=== PATIENT | male | born 1950 | race Caucasian/White ===

== ENCOUNTER → 2021-05-19 14:42 | Outpatient (BNVA) | payer OTHER, SELFPAY | PROVIDERS: PCP Internal Medicine; Visit Provider Urology | DX: C67.9 Malignant neoplasm of bladder, unspecified (principal) | CPT/HCPCS: 52000; 99212 ==

== ENCOUNTER 2021-11-11 09:33 | Outpatient (REF) | payer OTHER, SELFPAY | END 2021-11-11 09:34 | disposition home or self-care (01) | LOC: HO.LAB 09:33 | PROVIDERS: PCP Internal Medicine; Visit Provider Urology | DX: C67.9 Malignant neoplasm of bladder, unspecified (principal) | CPT/HCPCS: 52000; 99212 ==

== ENCOUNTER 2022-11-11 08:40 | Outpatient (REF) | payer OTHER, SELFPAY ==
[2022-11-11 16:43] LABS: Urine Cytology See Pathology rpt
== END 2022-11-11 08:41 | disposition home or self-care (01) ==
LOC: HO.LAB 08:40
PROVIDERS: PCP Internal Medicine; Visit Provider Urology
DX: C67.9 Malignant neoplasm of bladder, unspecified (principal)
CPT/HCPCS: 52000; 88112; 99212

== ENCOUNTER 2023-03-25 12:53 | Outpatient (AMB) | payer OTHER, SELFPAY ==
--- NOTE | 2023-03-25 12:59 | A.OFFVIS_ITS ---
Intake Vital Signs 03/25/23 13:00 Height 6 ft Weight 132 lb 11.492 oz BMI 18.0 BP 138/83 Blood Pressure Location Lt brachial Position Sitting Pulse 99 Intake Visit Reasons: Colonoscopy Screening, / Dr. Underwood pt Intake Note: Patient presents to in office visit today as a new patient for disease of biliary tract. CC: Denies having any GI symptoms today. Allergies No Known Allergies [No Known Allergies*] Allergy (Verified 11/11/22 08:47) HPI HPI Comments History of Present Illness Details This is a 73y.o M with PMH of AAA, low grade bladder ca, COPD, who was last seen in our office in 2017 for screening colo (Dr Underwood - rpt in 10y) who is here for recent CTA with hepatobiliary abnormality. Pt currently reports no abd sx to include pain, N,V, change in appetite or stools. No unintentional weight loss. Drinks rarely. Smokes 0.5PPD. Sees [place] Nadege De Guzman [place] [facility] [place] of AAA. Had a CTA done recently that also showed densities associated with CBD with question of enalrged lymph nodes around it vs CBD stones. PFSH Medical History COPD (chronic obstructive pulmonary disease) History of peptic ulcer disease Pulmonary nodule Urinary bladder cancer Surgical History H/O colonoscopy History of surgery Social History Alcohol intake: current Alcohol intake frequency: holidays/special occasions only Patient Tobacco Use Status: Current everyday Tobacco user Cigarette Packs Per Day: 10 Years Smoked: 59 Review of Systems Const All systems reviewed & are unremarkable except as noted in HPI and below Physical Exam Vital Signs: Last Vital Signs Pulse 99 03/25/23 13:00 BP 138/83 03/25/23 13:00 BMI result Body Mass Index 18.0 Gen appear: NAD HEENT: nonicteric, no cervical lymphadenopathy Chest: CTA CVS: Regular S1/S2 Abd: soft, nontender, nondistended, bowel sounds + Ext: no peripheral edema Neuro: A/Ox3, noted to move all extremities spontaneously Psych: interacting appropriately Assessment & Plan Assessment & Plan (1) Dilated cbd, acquired: Code(s): K83.8 - Other specified diseases of biliary tract (2) Enlarged lymph nodes: Code(s): R59.9 - Enlarged lymph nodes, unspecified Plan Reviewed with the pt that CTA read is a bit perplexing as enlarged lymph nodes AROUND cbd appear very different from CBD stones INSIDES the common bile duct. In any case, will evaluate further with LFTs and liver protocol imaging. This has been ordered. Follow up in 6 weeks. Orders: Orders MR abdomen wo/w con Today K83.8 - Other specified diseases of biliary tract, R59.9 - Enlarged lymph nodes, unspecified Comprehensive Met. Panel Today K83.8 - Other specified diseases of biliary tract Complete Blood Count no Diff Today K83.8 - Other specified diseases of biliary tract Hepatitis B Surface Antibody Today Z11.59 - Encounter for screening for other viral diseases Hepatitis A IgG Today Z11.59 - Encounter for screening for other viral diseases Hepatitis B Core Antibody Today Z11.59 - Encounter for screening for other viral diseases Hepatitis B Surface Antigen Today Z11.59 - Encounter for screening for other viral diseases Hepatitis C Antibody Today Z11.59 - Encounter for screening for other viral diseases Coding Level of Care Code New Pt Level 4 (01419) Diagnoses Dilated cbd, acquired K83.8 Enlarged lymph nodes R59.9
[2023-03-25 13:00] VITALS: BP 138/83; PULSE 99; BMI 18.0
== END 2023-03-25 13:31 | disposition home or self-care (01) ==
PROVIDERS: PCP Internal Medicine; Visit Provider Internal Medicine
DX: K83.8 Other specified diseases of biliary tract (principal); R59.9 Enlarged lymph nodes, unspecified
CPT/HCPCS: 99204

== ENCOUNTER 2023-03-25 12:53 | Outpatient (REF) | payer OTHER, SELFPAY ==
[2023-03-25 14:51] LABS: Red Cell Distribution Width 13.8 % (11.0-16.0)
[2023-03-25 14:53] LABS: Hematocrit 49.9 % (42.0-52.0); Hemoglobin 16.5 g/dl (14.0-18.0); Mean Corpuscular HGB Conc 33.1 g/dl (31.0-36.0); Mean Corpuscular Hemoglobin 30.5 pg (27.0-33.0); Mean Corpuscular Volume 92.2 fL (80.0-98.0); PLT CLUMP 1; Red Blood Count 5.41 X10*6/uL (4.60-5.80)
[2023-03-25 14:55] LABS: PLT ABN DIST 1
[2023-03-25 15:38] LABS: Alanine Aminotransferase 25 U/L (0-40); Albumin Level 4.5 g/dL (3.5-5.0); Alkaline Phosphatase 89 U/L (39-117); Anion Gap 17 (12-20); Aspartate Amino Transferase 23 U/L (5-37); Bilirubin Total 0.3 mg/dL (0.0-1.0); Blood Urea Nitrogen 17 mg/dL (9-16); Calcium 10.3 mg/dL (8.4-10.2); Carbon Dioxide 21 mmol/L (22-29); Chloride 108 mmol/L (96-108); Estimated Glomerular Filt Rate > 60; Glucose Random 82 mg/dL (60-115); Potassium 4.6 mmol/L (3.3-5.1); Sodium 141 mmol/L (135-145); Total Protein 7.8 g/dL (6.5-8.0)
[2023-03-25 16:26] LABS: Platelet Count 158 X10*3/uL (160-400); White Blood Count 7.8 X10*3/uL (4.8-10.8)
[2023-03-26 04:12] LABS: Hepatitis A Antibody IgG Nonreactive (Nonreactive); ~Hepatitis A Antibody IgG 0.29 S/CO (0.00-0.99)
[2023-03-26 04:24] LABS: HBS Num1 0.13 mIU/mL (0-7.99); HBc Num1 0.07 S/CO (0.00-0.79); HBsAGNum1 0.36 S/CO (0.00-0.99); Hepatitis B Core Antibody Nonreactive (Nonreactive); Hepatitis B Surface Antigen Negative (Negative); ~HepC Num1 0.13 S/CO (0.00-0.79); ~Hepatitis B Surface Antibody NONREACTIVE (Nonreactive); ~Hepatitis C Antibody Nonreactive (Nonreactive)
== END 2023-03-25 12:54 | disposition home or self-care (01) ==
LOC: HO.LAB 12:53
PROVIDERS: PCP Internal Medicine; Visit Provider Internal Medicine
DX: Z11.59 Encounter for screening for other viral diseases (principal); K83.8 Other specified diseases of biliary tract; R59.9 Enlarged lymph nodes, unspecified; Z72.89 Other problems related to lifestyle
CPT/HCPCS: 36415; 80053; 85027; 86704; 86706; 86708; 86803; 87340; 99202

== ENCOUNTER 2023-05-11 09:54 | Outpatient (REF) | payer OTHER, SELFPAY ==
--- NOTE | ~2023-05-11 | MR_ITS ---
EXAMINATION: MR ABDOMEN WITHOUT AND WITH CONTRAST CLINICAL INFORMATION: Lymphadenopathy COMPARISON: None available. TECHNIQUE: MR abdomen was performed without and with use of 6 mL intravenous Gadavist . Postcontrast images are performed in multiphase dynamic sequences. Imaging was performed in 3 planes. FINDINGS: LUNG BASES: The visualized lung bases are unremarkable. LIVER, GALLBLADDER, AND BILIARY TREE: The liver is normal in size, smooth in contour, and normal in signal. No focal hepatic lesion or biliary ductal dilatation is present. The gallbladder is unremarkable with no evidence of gallbladder wall thickening, or obvious pericholecystic inflammatory changes. PANCREAS: Unremarkable. SPLEEN: Normal. ADRENAL GLANDS: Normal. KIDNEYS AND URETERS: The kidneys are normal in size, shape, and enhance symmetrically. No hydronephrosis. No perinephric stranding. GASTROINTESTINAL TRACT: No bowel obstruction. No ascites or fluid collection. ABDOMINAL WALL: No significant hernia is appreciated. LYMPH NODES: No lymphadenopathy. VASCULAR: Unremarkable. OSSEOUS STRUCTURES: Marrow signal normal. MR/MR abdomen wo/w con IMPRESSION: Unremarkable exam.
--- NOTE | ~2023-05-11 | XR_ITS ---
EXAMINATION: XR ORBITS, 3 VIEWS CLINICAL INFORMATION: Pre-MRI screening COMPARISON: None available. TECHNIQUE: 3 views of the orbits FINDINGS: No radiopaque densities identified in the region of the orbit. Visualized sinuses are unremarkable. Osseous structures are intact. Soft tissues are unremarkable. XR/XR pre mri screening IMPRESSION: 1. No radiopaque densities identified in the region of the orbit. 2. Visualized sinuses are unremarkable. 3. Osseous structures are intact.
[2023-05-11] MEDS: gadobutroL 7.5 ML VIAL IVPUSH (12:09)
== END 2023-05-11 09:55 | disposition home or self-care (01) ==
LOC: HO.MRI 09:54
PROVIDERS: PCP Internal Medicine; Visit Provider Internal Medicine
DX: R59.9 Enlarged lymph nodes, unspecified (principal); K83.8 Other specified diseases of biliary tract
CPT/HCPCS: 74183; A9585

== ENCOUNTER 2023-05-20 13:41 | Outpatient (AMB) | payer OTHER, SELFPAY ==
[2023-05-20 13:45] VITALS: BP 173/88; PULSE 90; BMI 17.9
--- NOTE | 2023-05-20 13:45 | A.OFFVIS_ITS ---
Intake Vital Signs 05/20/23 13:45 Height 6 ft Weight 132 lb 4.438 oz BMI 17.9 BP 173/88 H Blood Pressure Location Lt brachial Position Sitting Pulse 90 Intake Visit Reasons: 6 weeks follow up Intake Note: Liban presents in the office as a 6 week follow up. CC: He states that he is feeling okay. No concerns at this time. 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 03/25/23: Pt currently reports no abd sx to include pain, N,V, change in appetite or stools. No unintentional weight loss. Drinks rarely. Smokes 0.5PPD. [place] [facility] [place]. Had a CTA done recently that also showed densities associated with CBD with question of enalrged lymph nodes around it vs CBD stones. 05/20/23: Pt currently reports no gastrointestinal complaints to include abdominal pain, N,V, pruritus, unintentional weight loss. Labs reviewed that show normal LFTs. MRI 05/11/23: The liver is normal in size, smooth in contour, and normal in signal. No focal hepatic lesion or biliary ductal dilatation is present. The gallbladder is unremarkable with no evidence of gallbladder wall thickening, or obvious pericholecystic inflammatory changes. PANCREAS: Unremarkable. [facility] Medical History Pulmonary nodule Urinary bladder cancer COPD (chronic obstructive pulmonary disease) History of peptic ulcer disease Surgical History H/O colonoscopy History of surgery Social History Alcohol intake: current Alcohol intake frequency: holidays/special occasions only Patient Tobacco Use Status: Current everyday Tobacco user Cigarette Packs Per Day: 10 Years Smoked: 59 Review of Systems Const All systems reviewed & are unremarkable except as noted in HPI and below Physical Exam Vital Signs: Last Vital Signs Pulse 90 05/20/23 13:45 BP 173/88 H 05/20/23 13:45 BMI result Body Mass Index 17.9 Gen appear: NAD HEENT: nonicteric, no cervical lymphadenopathy Chest: CTA CVS: Regular S1/S2 Abd: soft, nontender, nondistended, bowel sounds + Ext: no peripheral edema Neuro: A/Ox3, noted to move all extremities spontaneously Psych: interacting appropriately Assessment & Plan Assessment & Plan (1) Dilated cbd, acquired: Code(s): K83.8 - Other specified diseases of biliary tract Plan Reported on CTA done at [facility] with ?lymphadenopathy vs CBD stone. Images not available for review. Further work up done here including LFTs and liver protocol MRI within normal limits. No further work up required at this time. Pt also reports being up to date with colorectal cancer screening. Follow up PRN. Coding Level of Care Code Est Pt Level 4 (32376) Diagnoses Dilated cbd, acquired K83.8
== END 2023-05-20 14:33 | disposition home or self-care (01) ==
PROVIDERS: PCP Internal Medicine; Visit Provider Internal Medicine
DX: K83.8 Other specified diseases of biliary tract (principal)
CPT/HCPCS: 99214

== ENCOUNTER → 2023-05-20 13:41 | Outpatient (BNVA) | payer OTHER, SELFPAY | PROVIDERS: PCP Internal Medicine; Visit Provider Internal Medicine | DX: K83.8 Other specified diseases of biliary tract (principal) | CPT/HCPCS: 99212 ==

== ENCOUNTER 2023-11-15 08:02 | Outpatient (AMB) | payer OTHER, SELFPAY ==
--- NOTE | 2023-11-15 08:13 | MHC.OFFVIS ---
Intake Intake Visit Reasons: 1Y Follow Up(Confirmed) Intake Note: Patient is present for a 1 year follow-up (Bladder Cancer) Urology Med: None Antibiotic Allergy: None Blood Thinner: Aspirin Confirmed pharmacy: [facility] URO- G Disposable Cystoscope lot: [id number] exp:06/16/2026 Supervisor Statement Clerks Required: No Accompanied by: Self / Same As Patient Allergies No Known Allergies [No Known Allergies*] Allergy (Verified 11/15/23 08:26) HPI HPI Comments History of Present Illness Details Liban is a very pleasant male. He is a patient of Dr. Torres. 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 deployment to [employer] Cystoscopy - 05/12 NAD - has open ureter right side - 10/13 NAD, 11/11 NAD PFSH Medical History Pulmonary nodule Urinary bladder cancer COPD (chronic obstructive pulmonary disease) History of peptic ulcer disease Surgical History H/O colonoscopy History of surgery Social History Alcohol intake: current Alcohol intake frequency: holidays/special occasions only Patient Tobacco Use Status: Current everyday Tobacco user Cigarette Packs Per Day: 10 Years Smoked: 59 Review of Systems Const Denies chills and Denies fever(s) Card Reports no additional complaints and Denies syncope Resp Denies cough GI Denies abdominal pain and Denies heartburn Reports as per HPI and Denies change in libido Neuro Denies syncope Psych Denies change in libido Endo Denies change in libido Physical Exam Const General: cooperative, healthy appearing, comfortable and no acute distress Orientation/consciousness: patient oriented x3 HEENT Face and sinus: Yes normal facial exam Mouth: moist mucous membranes Neck Neck: Yes normal visual inspection, Yes full ROM and Yes trachea midline Chest Chest palpation & inspection: normal inspection of the chest Resp Effort & Inspection: normal respiratory effort, able to speak in complete sentences and no respiratory distress GI Inspection: Yes normal to inspection Back/Spine/Pelvis Cervical Spine: normal cervical lordosis Thoracic/Lumbar Spine: thoracic and lumbar spine normal to inspection Skin General skin exam: no rashes or lesions noted Neuro General: patient oriented x3, gait normal, tone normal and moves all extremities Extrem General: Yes normal to inspection and Yes capillary refill normal Office Procedures Cystoscopy Consent Discussed risk and benefit or proposed procedure with the patient. Information consent for procedure given to the patient. Discussed technical aspects, risks, benefits and alternatives in full. Addressed all of the patient's questions and concerns regarding the procedure. The patient demonstrated knowledge and understanding. They wish to proceed with this procedure. Preparation The patient was prepped in the usual manner. A high school art teacher was present and in the room. Genitalia was prepped with betadine solution in a sterile manner. Lidocaine Jelly 2% was placed into the urethra and 16Fr flexible Olympus cystoscope was inserted into the meatus after adequate lubrication. Procedure Meatus circumcised Urethra anterior posterior urethra normal Prostatic Urethra unremarkable Bladder examination with retroflexion of cystoscope Bladder Orifices normal shape and position Bladder Capacity medium Trabeculations grade 2 Cellule Formation yes Diverticulum Formation - Mucosal Erythema - Bladder Tumor small 1.5 cm lesion on prostate opening [id number] DISPOSABLE SCOPE URO-G FLEXIBLE SCOPE Procedure code (CPT) selection complete Office Meds lidocaine HCl 2 % mucosal jelly in applicator Performing Provider: Neo Douglas MD Performing Location: [facility] [place] [facility] Administered by: Hill Kumar LPN on 11/15/23 09:00 Dose Route Admin Location Dispensed Lot Number Expiration Date [facility] Turbo Operator 10 mL intra-urethral 10 mL nitrofurantoin monohydrate/macrocrystals 100 mg capsule Performing Provider: Neo Douglas MD Performing Location: [facility] [place] [facility] Administered by: Hill Kumar LPN on 11/15/23 09:00 Dose Route Admin Location Dispensed Lot Number Expiration Date [facility] Turbo Operator 100 mg PO 1 cap naproxen 500 mg tablet Performing Provider: Neo Douglas MD Performing Location: [facility] [place] [facility] Administered by: Hill Kumar LPN on 11/15/23 09:00 Dose Route Admin Location Dispensed Lot Number Expiration Date [employer] Turbo Operator 500 mg PO 1 tab Assessment & Plan Assessment & Plan (1) Urinary bladder cancer: Comment: 2017, Recurrence April 2020 Agent [place] Code(s): C67.9 - Malignant neoplasm of bladder, unspecified Plan Transurethral resection of bladder tumor with/without adjuvant cytotoxic bladder installation We discussed the nature of the decision and reasonable options for performing the above surgery. Interventions include TURBT with or without intravesical administration of immunotherapy or cytotoxic medication. The relative uncertainties and benefits related to each alternate procedure were adequately discussed. General surgical risks including, but not limited to, pain, bleeding, infection, myocardial infarction, pulmonary embolus, deep vein thrombosis and cerebrovascular accident which may result in further hospitalization were discussed. Full disclosure of the procedure as well as all major risks, benefits and complications were discussed including but not limited to damage to the urethra or bladder neck, need for ureteric stenting, perforation of the bladder, chemical cystitis, chemical peritonitis, epididymitis, and meatal stenosis. The success rate of the procedure was discussed. Success of the procedure in the short-term does not necessarily guarantee that long-term success will be maintained. Suitable follow up will need to be maintained. The patient showed understanding of discussion and wishes to proceed as above. TURBT small with adjuvant therapy Orders: Orders AMB Cystoscopy Today C67.9 - Malignant neoplasm of bladder, unspecified Patient Instructions: Imaging studies, laboratory and physical exam results were discussed and reviewed in detail. No major barriers to patient understanding were identified. An opportunity to ask questions regarding the treatment plan was provided. All questions were answered. The patient expressed understanding and agreement with the above treatment plan. The patient is aware they should contact our office by phone for worsening of their current condition or the appearance of new urologic symptoms. Compliance is encouraged with any medications and followup testing that is ordered. It is a privilege to participate in the urologic care of your patient. If you have any questions or concerns regarding treatment for the above conditions, or other urologic issues, please do not hesitate to contact me. The office telephone contact is [phone]. This note is constructed using voice recognition software. While every effort has been made to ensure accuracy catalogue clerk errors may have been included. Yours sincerely, Dr Neo Douglas MD, [facility] - Urology Providers of Expert, Compassionate Care for the Genitourinary System Coding Level of Care Code Est Pt Level 4 (05610) Diagnoses Urinary bladder cancer C67.9 CPT Codes Cystoscopy - CPT: 56172-[id number] ([id number])
== END 2023-11-15 09:33 | disposition home or self-care (01) ==
PROVIDERS: Referring Provider Internal Medicine; Visit Provider Urology
DX: C67.5 Malignant neoplasm of bladder neck (principal)
CPT/HCPCS: 52000; 99214

== ENCOUNTER → 2023-11-15 08:02 | Outpatient (BNVA) | payer OTHER, SELFPAY | PROVIDERS: Visit Provider Urology | DX: C67.9 Malignant neoplasm of bladder, unspecified (principal) | CPT/HCPCS: 52000; 99212 ==

== ENCOUNTER 2024-01-30 07:00 | Day surgery (SDC) | payer OTHER, SELFPAY ==
[2024-01-26 09:32] VITALS: BMI 17.9
--- NOTE | 2024-01-26 14:38 | P.CONAN_ITS ---
Documented by User: Dee Chen NP 01/26/24 14:39 HPI - Anesthesia Eval Consult details Narrative: 73yo M for TUR Bladder Tumor with Mitomycin and Cytarabine Smoker/COPD [facility] Active Problems Active Problems: All Active Problems Encounter for hepatitis C screening test for low risk patient (Acute) Dilated cbd, acquired (Acute) Enlarged lymph nodes (Acute) Urinary bladder cancer (Acute) Past Medical History Medical History Elevated cholesterol Pulmonary nodule Urinary bladder cancer COPD (chronic obstructive pulmonary disease) History of peptic ulcer disease Surgical History Surgical History Hx of cystoscopy H/O colonoscopy History of surgery Social History Social History Alcohol intake: current Alcohol intake frequency: holidays/special occasions only Patient Tobacco Use Status: Current everyday Tobacco user Tobacco use type: Cigarette Cigarette Packs Per Day: 0.5 Cigarettes Per Day: 10.0 Years Smoked: 59 Smoked in Last 30 Days: Yes Use of substances other than those prescribed or required for medical reasons: No Are you DNR?: Yes Advance Directives: No Advance Directives Information Provided: Yes Meds Allergies Allergy/AdvReac Type Severity Reaction Status Date / Time No Known Allergies Allergy Verified 01/30/24 07:15 [No Known Allergies*] Home Medications ?Medication ?Instructions ?Recorded ?Confirmed ?Last Taken ?Type pravastatin 10 mg tablet 10 mg PO DAILY 05/19/21 01/30/24 Unknown History aspirin 81 mg tablet,delayed 81 mg PO DAILY 03/25/23 01/30/24 Unknown History release Exam Height,Weight and Vital Signs: Height 6 ft Weight 59.874 kg Assessment and Plan Assessment Anesthesia Assessment: Chart Reviewed Documented by User: Jon Stanford MD 01/30/24 09:41 PMF Past Medical History Medical History Elevated cholesterol Pulmonary nodule Urinary bladder cancer COPD (chronic obstructive pulmonary disease) History of peptic ulcer disease Family History Family history of problems with anesthesia: No Surgical History Surgical History Hx of cystoscopy H/O colonoscopy History of surgery History of Problems with Anesthesia: No Social History Social History Alcohol intake: current Alcohol intake frequency: holidays/special occasions only Patient Tobacco Use Status: Current everyday Tobacco user Tobacco use type: Cigarette Cigarette Packs Per Day: 0.5 Cigarettes Per Day: 10.0 Years Smoked: 59 Smoked in Last 30 Days: Yes Use of substances other than those prescribed or required for medical reasons: No Are you DNR?: Yes Advance Directives: No Advance Directives Information Provided: Yes Meds Allergies Allergy/AdvReac Type Severity Reaction Status Date / Time No Known Allergies Allergy Verified 01/30/24 07:15 [No Known Allergies*] Home Medications ?Medication ?Instructions ?Recorded ?Confirmed ?Last Taken ?Type pravastatin 10 mg tablet 10 mg PO DAILY 05/19/21 01/30/24 Unknown History aspirin 81 mg tablet,delayed 81 mg PO DAILY 03/25/23 01/30/24 Unknown History release Exam Airway Mallampati Class: I TM Dist: >3cm Neck ROM: Full Denture: Upper and Lower Heart: ok Lungs: ok Assessment and Plan Assessment Anesthesia Assessment: Anesthesia Plan Discussed Final Anesthetic Review Family History of Problems with Anesthesia: No History of Problems with Anesthesia: No NPO: Yes ASA Class: III Final Preanesthetic Review: No Changes in Pt Med Stat, Meds/Allgs Chart Reviewed, Consent Obtained/Reviewed, Anes Risks/Benef Reviewed and DNR Form (If Appl.) Patient Risk: Intermediate Procedure Risk: Low Anesthetic Plan Anesthetic Plan: GA and Agree w/ Assess. and Plan Disposition: Standard PACU
[2024-01-30] VITALS (11 sets, daily range): BP systolic 73–178; BP diastolic 46–83; PULSE 53–63; RESP 14–16; TEMP 36.1–36.4; O2SAT 98–100; BMI 17.4
--- NOTE | 2024-01-30 07:33 | MHC.SHP ---
Pre-Procedural Eval Section A - 24 Hr Update-Section A only Date of Service: 01/30/24 The patient is an INPATIENT: No Changes since office visit: No Cold of Flu in the past 2 weeks, No New Medical Problems, No Changes in Medication and No Patient answered all questions The patient has been examined within 24 hours of the surgical procedure. The History & Physical has been completed within 30 days and I have reviewed it.: Yes Section B - Complete if H&P > 30 days Chief Complaint: Malignant neoplasm of bladder, unspecified Allergies: Allergies Allergy/AdvReac Type Severity Reaction Status Date / Time No Known Allergies Allergy Verified 01/30/24 07:15 [No Known Allergies*] Plan Diagnosis/Plan: Unchanged (TURBT with chemotherapy installation) I have reviewed the history and physical and performed a pertinent physical examination on my patient. No changes have occurred unless specified. Time Spent With Patient Time: Total time managing care of this patient today ____ minutes.
[2024-01-30] MEDS: Lactated Ringers 1,000 ML 100 ML IVCONT (07:57)
--- NOTE | 2024-01-30 10:17 | P.OP_ITS ---
Operative Note Operative Note Date of Service: 01/30/24 Narrative: PreOperative Diagnosis: bladder cancer Post Operative Diagnosis: bladder cancer - Tumor size total 5 cm, location base of bladder collection of small tumors, posterior wall 1 cm tumor, left lateral wall 1 cm tumor, dome bladder 1 cm tumor Procedure: TURBT and mitomycin-C with cytarabine Surgeon: Dr Neo Douglas Anesthesia: general Indications for procedure: Prior recurrent bladder cancer treated many years. In office found to have recurrence at multiple locations throughout bladder Procedure: After informed consent was verified the patient was brought to the operating room and placed in a supine position. Anesthesia was administered per protocol. The patient was placed in a modified dorsal lithotomy position and prepped and draped in a sterile fashion. Safety pause time-out was performed. Antibiotics were confirmed. A 26 Pashto continuous flow resectoscope was inserted per urethra. The visual obturator was used in order to minimize potential for urethral damage. Previously resected right ureteric orifice seen well healed. Lesions seen at base of bladder by bladder neck. Secondary lesion on posterior wall. Third lesion on dome of bladder. Fourth lesion on left lateral wall. Secondary lesions all 1 cm or less. Base of bladder lesion resected and fulgurated. Other lesions were out we fulgurated. At the completion of the procedure the bladder was irrigated. The cystoscope was removed. An [address] catheter was inserted into the bladder. 10 cc was placed in the balloon. 40 mg of mitomycin-C with cytarabine in 20 cc normal saline was instilled into the bladder. The flow from the catheter was left clamped. The inflow to the catheter was attached to a 3 L normal saline bag. The patient tolerated the procedure well. They were extubated in the operating room and transferred in stable condition to the recovery area. Mitomycin-C will remain in the bladder for 1 hour. At the completion of 1 hour the clamp will be removed. The mitomycin-C will be allowed to egress to the urine collection bag. The 3 L bag of normal saline will be run at maximum rate through the bladder in order to dilute any residual mitomycin-C. The Cannon catheter will then be removed. Pathology: Bladder cancer Drains: Three-way cannon
== END 2024-01-30 12:51 | disposition home or self-care (01) ==
PROVIDERS: PCP Internal Medicine; Visit Provider Urology
PROC: 0TBB8ZZ Excision of Bladder, Via Natural or Artificial Opening Endoscopic (ICD-10-PCS; CPT 52235; principal; 2024-01-30 09:20)
DX: C67.9 Malignant neoplasm of bladder, unspecified (principal)
CPT/HCPCS: 52235; 51720; J1956; J2704; J3010; J9100; J9280

== ENCOUNTER → 2024-01-30 07:00 | Outpatient (BNV) | payer OTHER, SELFPAY | PROVIDERS: PCP Internal Medicine; Visit Provider Urology | DX: C67.8 Malignant neoplasm of overlapping sites of bladder (principal) | CPT/HCPCS: 52240 ==

== ENCOUNTER 2024-02-14 09:06 | Outpatient (AMB) | payer OTHER, SELFPAY ==
--- NOTE | 2024-02-14 09:33 | A.OFFVIS_ITS ---
Intake Visit Reasons: TURBT- follow up Intake Note: Patient Is Present for Post Op Follow up Procedure Done:TURBT Urology Med: None Antibiotic Allergy:None Blood Thinner: Aspirin PT states that he is urinating more frequently and in small amounts Activities Aide Required: No Allergies No Known Allergies [No Known Allergies*] Allergy (Verified 02/14/24 09:39) HPI Comments Details: Liban is a very pleasant male. He is a patient of Dr. Torres. He is seen for the following urologic conditions - recurrent low-grade superficial bladder cancer Multiple small lesions seen last TURBT Adjuvant mitomycin-C with cytarabine Plan on completion induction immunotherapy. Six total doses of mitomycin C with cytarabine. Already had 1st dose in OR. Bladder cancer low-grade - will require lifetime surveillance - recurrent Bladder cancer recurrent low-grade Ongoing for number of years TURBT 06/07 Low grade, 05/11 low-grade noninvasive, 02/12 low-grade noninvasive multiple locations Prior adjuvant therapy - BCG induction Long history of heavy smoking Exposure to chemicals in the workplace such as plastics Agent orange exposure during 18 month deployment to [facility] Cystoscopy - 05/12 NAD - has open ureter right side - 10/13 NAD, 11/11 NAD [facility] Medical History Elevated cholesterol Pulmonary nodule Urinary bladder cancer COPD (chronic obstructive pulmonary disease) History of peptic ulcer disease Surgical History Hx of cystoscopy H/O colonoscopy History of surgery Social History Alcohol intake: current Alcohol intake frequency: holidays/special occasions only Patient Tobacco Use Status: Current everyday Tobacco user Tobacco use type: Cigarette Cigarette Packs Per Day: 0.5 Cigarettes Per Day: 10.0 Years Smoked: 59 Review of Systems Const Denies chills and Denies fever(s) Card Reports no additional complaints and Denies syncope Resp Denies cough GI Denies abdominal pain and Denies heartburn Reports as per HPI and Denies change in libido Neuro Denies syncope Psych Denies change in libido Endo Denies change in libido Physical Exam Const General: cooperative, healthy appearing, comfortable and no acute distress Orientation/consciousness: patient oriented x3 HEENT Face and sinus: Yes normal facial exam Mouth: moist mucous membranes Neck Neck: Yes normal visual inspection, Yes full ROM and Yes trachea midline Chest Chest palpation & inspection: normal inspection of the chest Resp Effort & Inspection: normal respiratory effort, able to speak in complete sentences and no respiratory distress GI Inspection: Yes normal to inspection Back/Spine/Pelvis Cervical Spine: normal cervical lordosis Thoracic/Lumbar Spine: thoracic and lumbar spine normal to inspection Skin General skin exam: no rashes or lesions noted Neuro General: patient oriented x3, gait normal, tone normal and moves all extremities Extrem General: Yes normal to inspection and Yes capillary refill normal Assessment & Plan Assessment & Plan (1) Urinary bladder cancer: Comment: 2016, Recurrence April 2020 Agent [place] Code(s): C67.9 - Malignant neoplasm of bladder, unspecified Category: Medical Plan Immunotherapy bladder Risks, benefits and alternatives to therapy were discussed. These include but are not limited to infection, bleeding, damage to local organs and tissues, need for further interventions. Anesthetic risks regarding cardiac arrhythmia, blood clots, and potential mortality were discussed. The patient understands the typical recovery time and the outpatient nature of the procedure. After consideration of these risks the patient gives full informed consent and they wish to move ahead with the procedure. 6 week total mitomycin-C with cytarabine Patient Instructions: Imaging studies, laboratory and physical exam results were discussed and reviewed in detail. No major barriers to patient understanding were identified. An opportunity to ask questions regarding the treatment plan was provided. All questions were answered. The patient expressed understanding and agreement with the above treatment plan. The patient is aware they should contact our office by phone for worsening of their current condition or the appearance of new urologic symptoms. Compliance is encouraged with any medications and followup testing that is ordered. It is a privilege to participate in the urologic care of your patient. If you have any questions or concerns regarding treatment for the above conditions, or other urologic issues, please do not hesitate to contact me. The office telephone contact is [phone]. This note is constructed using voice recognition software. While every effort has been made to ensure accuracy shop steward errors may have been included. Yours sincerely, Dr Neo Douglas MD, [facility] - Urology Providers of Expert, Compassionate Care for the Genitourinary System Coding Level of Care Code Est Pt Level 4 (04558) Diagnoses Urinary bladder cancer C67.9
== END 2024-02-14 10:16 | disposition home or self-care (01) ==
PROVIDERS: PCP Internal Medicine; Visit Provider Urology
DX: C67.9 Malignant neoplasm of bladder, unspecified (principal)
CPT/HCPCS: 99213

== ENCOUNTER → 2024-02-14 09:06 | Outpatient (BNVA) | payer OTHER, SELFPAY | PROVIDERS: PCP Internal Medicine; Visit Provider Urology | DX: C67.9 Malignant neoplasm of bladder, unspecified (principal); Z57.4 Occupational exposure to toxic agents in agriculture | CPT/HCPCS: 99212 ==

== ENCOUNTER 2024-05-04 08:48 | Outpatient (AMB) | payer OTHER, SELFPAY ==
--- NOTE | 2024-05-04 09:07 | MHC.OFFVIS ---
Intake Visit Reasons: 3M Cysto(Bladder CA) Intake Note: Patient Is Present for 3M CYSTOSCOPY Urology Med: None Antibiotic Allergy:None Blood Thinner: Aspirin Gluer Machine Setup Operator Required: No Allergies No Known Allergies [No Known Allergies*] Allergy (Verified 05/04/24 09:09) [facility] Medical History Elevated cholesterol Pulmonary nodule Urinary bladder cancer COPD (chronic obstructive pulmonary disease) History of peptic ulcer disease Surgical History Hx of cystoscopy H/O colonoscopy History of surgery Social History Alcohol intake: current Alcohol intake frequency: holidays/special occasions only Patient Tobacco Use Status: Current everyday Tobacco user Tobacco use type: Cigarette Cigarette Packs Per Day: 0.5 Cigarettes Per Day: 10.0 Years Smoked: 59 Office Procedures Cystoscopy Consent Discussed risk and benefit or proposed procedure with the patient. Information consent for procedure given to the patient. Discussed technical aspects, risks, benefits and alternatives in full. Addressed all of the patient's questions and concerns regarding the procedure. The patient demonstrated knowledge and understanding. They wish to proceed with this procedure. Preparation The patient was prepped in the usual manner. A laborer shellfish processing was present and in the room. Genitalia was prepped with betadine solution in a sterile manner. Lidocaine Jelly 2% was placed into the urethra and 16Fr flexible Olympus cystoscope was inserted into the meatus after adequate lubrication. [id number] DISPOSABLE SCOPE URO-G FLEXIBLE SCOPE Procedure code (CPT) selection complete Office Meds lidocaine HCl 2 % mucosal jelly in applicator Performing Provider: Neo Douglas MD [place] [facility] [facility] Administered by: Hill Kumar LPN on 05/04/24 09:25 Dose Route Admin Location Dispensed Lot Number Expiration Date [facility] [employer] Manager 10 mL intra-urethral 10 mL nitrofurantoin monohydrate/macrocrystals 100 mg capsule Performing Provider: Neo Douglas MD [place] [facility] Administered by: Hill Kumar LPN on 05/04/24 09:25 Dose Route Admin Location Dispensed Lot Number Expiration Date [facility] Employment Agency Manager 100 mg PO 1 cap naproxen 500 mg tablet Performing Provider: Neo Douglas MD [place] [facility] Administered by: Hill Kumar LPN on 05/04/24 09:25 Dose Route Admin Location Dispensed Lot Number Expiration Date [facility] Employment Agency Manager 500 mg PO 1 tab Results AMB Urinalysis, Automated UA Leukoctes 15 [place]/uL Last Edit by ANUPAMA Pollock on 05/04/24 09:20 UA Nitrite Negative Last Edit by ANUPAMA Pollock on 05/04/24 09:20 UA Urobilinogen 0.2 mg/dL Last Edit by ANUPAMA Pollock on 05/04/24 09:20 UA Protein 30 mg/dL Last Edit by ANUPAMA Pollock on 05/04/24 09:20 UA pH 6.0 Last Edit by ANUPAMA Pollock on 05/04/24 09:20 UA Blood 200 Geo/uL Last Edit by ANUPAMA Pollock on 05/04/24 09:20 UA Specific [place] 1.025 Last Edit by ANUPAMA Pollock on 05/04/24 09:20 UA Ketone Negative Last Edit by ANUPAMA Pollock on 05/04/24 09:20 UA Bilirubin 0 mg/dL Last Edit by ANUPAMA Pollock on 05/04/24 09:20 UA Glucose 0 mg/dL Last Edit by ANUPAMA Pollock on 05/04/24 09:20 Assessment & Plan Assessment & Plan Orders: Orders AMB Cystoscopy Today C67.9 - Malignant neoplasm of bladder, unspecified Medications: New nitrofurantoin monohyd/m-cryst 100 mg 100 mg PO ONCE 1 cap 0RF C67.9 - Malignant neoplasm of bladder, unspecified lidocaine HCl 2% 10 mL intra-urethral ONCE 10 mL 0RF C67.9 - Malignant neoplasm of bladder, unspecified naproxen 500 mg PO ONCE 1 tab 0RF C67.9 - Malignant neoplasm of bladder, unspecified Coding CPT Codes Cystoscopy - CPT: 54985-[id number] ([id number])
--- NOTE | 2024-05-04 09:25 | MHC.OFFVIS ---
Intake Visit Reasons: 3M Cysto(Bladder CA) Allergies No Known Allergies [No Known Allergies*] Allergy (Verified 05/04/24 09:09) HPI Comments Details: Liban is a very pleasant male. He is a patient of Dr. Torres. He is seen for the following urologic conditions - recurrent low-grade superficial bladder cancer Intermediate risk Completed mitomycin-C with gemcitabine induction Slow healing area on dome of bladder Three-month follow-up check cysto Urinary urgency. Would like to try oxybutynin. Bladder cancer low-grade - will require lifetime surveillance - recurrent Bladder cancer recurrent low-grade Ongoing for number of years TURBT 06/07 Low grade, 05/11 low-grade noninvasive, 02/12 low-grade noninvasive multiple locations Prior adjuvant therapy - BCG induction, Long history of heavy smoking Exposure to chemicals in the workplace such as plastics Agent orange exposure during 18 month deployment to [employer] Cystoscopy - 05/12 NAD - has open ureter right side - 10/13 NAD, 11/11 NAD PFSH Medical History Elevated cholesterol Pulmonary nodule Urinary bladder cancer COPD (chronic obstructive pulmonary disease) History of peptic ulcer disease Surgical History Hx of cystoscopy H/O colonoscopy History of surgery Social History Alcohol intake: current Alcohol intake frequency: holidays/special occasions only Patient Tobacco Use Status: Current everyday Tobacco user Tobacco use type: Cigarette Cigarette Packs Per Day: 0.5 Cigarettes Per Day: 10.0 Years Smoked: 59 Review of Systems Const Denies chills and Denies fever(s) Card Reports no additional complaints and Denies syncope Resp Denies cough GI Denies abdominal pain and Denies heartburn Reports as per HPI and Denies change in libido Neuro Denies syncope Psych Denies change in libido Endo Denies change in libido Physical Exam Const General: cooperative, healthy appearing, comfortable and no acute distress Orientation/consciousness: patient oriented x3 HEENT Face and sinus: Yes normal facial exam Mouth: moist mucous membranes Neck Neck: Yes normal visual inspection, Yes full ROM and Yes trachea midline Chest Chest palpation & inspection: normal inspection of the chest Resp Effort & Inspection: normal respiratory effort, able to speak in complete sentences and no respiratory distress GI Inspection: Yes normal to inspection Back/Spine/Pelvis Cervical Spine: normal cervical lordosis Thoracic/Lumbar Spine: thoracic and lumbar spine normal to inspection Skin General skin exam: no rashes or lesions noted Neuro General: patient oriented x3, gait normal, tone normal and moves all extremities Extrem General: Yes normal to inspection and Yes capillary refill normal Office Procedures Cystoscopy Consent Discussed risk and benefit or proposed procedure with the patient. Information consent for procedure given to the patient. Discussed technical aspects, risks, benefits and alternatives in full. Addressed all of the patient's questions and concerns regarding the procedure. The patient demonstrated knowledge and understanding. They wish to proceed with this procedure. Preparation The patient was prepped in the usual manner. A brick and blocker aid labor was present and in the room. Genitalia was prepped with betadine solution in a sterile manner. Lidocaine Jelly 2% was placed into the urethra and 16Fr flexible Olympus cystoscope was inserted into the meatus after adequate lubrication. Procedure Cystoscopy performed using a disposable Urovue digital 16 [place] cystoscope. Meatus circumcised Urethra anterior and posterior urethra normal Prostatic Urethra unremarkable Bladder examination with retroflexion of cystoscope Bladder Orifices normal shape and position Bladder Capacity median Trabeculations grade 2 Cellule Formation - Diverticulum Formation - Mucosal Erythema slowly healing areas from prior procedure Bladder Tumor - [id number] DISPOSABLE SCOPE URO-G FLEXIBLE SCOPE Procedure code (CPT) selection complete Office Meds lidocaine HCl 2 % mucosal jelly in applicator Performing Provider: Neo Douglas MD Performing Location: [facility] [place] [facility] Administered by: Hill Kumar LPN on 05/04/24 09:25 Dose Route Admin Location Dispensed Lot Number Expiration Date [employer] 10 mL intra-urethral 10 mL nitrofurantoin monohydrate/macrocrystals 100 mg capsule Performing Provider: Neo Douglas MD Performing Location: [facility] [place] [facility] Administered by: Hill Kumar LPN on 05/04/24 09:25 Dose Route Admin Location Dispensed Lot Number Expiration Date [employer] Director [employer] 100 mg PO 1 cap naproxen 500 mg tablet Performing Provider: Neo Douglas MD Performing Location: [facility] [place] [facility] Administered by: Hill Kumar LPN on 05/04/24 09:25 Dose Route Admin Location Dispensed Lot Number Expiration Date [employer] Director [employer] 500 mg PO 1 tab Results AMB Urinalysis, Automated UA Leukoctes 15 [place]/uL Last Edit by ANUPAMA Pollock on 05/04/24 09:20 UA Nitrite Negative Last Edit by ANUPAMA Pollock on 05/04/24 09:20 UA Urobilinogen 0.2 mg/dL Last Edit by ANUPAMA Pollock on 05/04/24 09:20 UA Protein 30 mg/dL Last Edit by ANUPAMA Pollock on 05/04/24 09:20 UA pH 6.0 Last Edit by Heidi Maria CCM on 05/04/24 09:20 UA Blood 200 Geo/uL Last Edit by ANUPAMA Pollock on 05/04/24 09:20 UA Specific [place] 1.025 Last Edit by ANUPAMA Pollock on 05/04/24 09:20 UA Ketone Negative Last Edit by ANUPAMA Pollock on 05/04/24 09:20 UA Bilirubin 0 mg/dL Last Edit by ANUPAMA Pollock on 05/04/24 09:20 UA Glucose 0 mg/dL Last Edit by ANUPAMA Pollock on 05/04/24 09:20 Results Reviewed Results Reviewed: Laboratory Last Values Urine pH (Auto) 6.0 05/04/24 09:19 Specific [place] (Auto) 1.025 05/04/24 09:19 Urine Protein (Auto) 30 mg/dL 05/04/24 09:19 Glucose (UA)(Auto) 0 mg/dL 05/04/24 09:19 Urine Ketones (Auto) Negative 05/04/24 09:19 Urine Blood (Auto) 200 Geo/uL 05/04/24 09:19 Urine Nitrite (Auto) Negative 05/04/24 09:19 Urine Bilirubin (Auto) 0 mg/dL 05/04/24 09:19 Urine Urobilinogen (Auto) 0.2 mg/dL 05/04/24 09:19 Leukocyte Esterase (Auto) 15 [place]/uL 05/04/24 09:19 Assessment & Plan Assessment & Plan (1) Urinary urgency: Code(s): R39.15 - Urgency of urination Category: Medical (2) Urinary bladder cancer: Comment: 2016, Recurrence April 2020 Agent [place] Code(s): C67.9 - Malignant neoplasm of bladder, unspecified Category: Medical Plan Oxybutynin Three-month follow-up check cysto Orders: Orders AMB Cystoscopy Today C67.9 - Malignant neoplasm of bladder, unspecified AMB Urinalysis Automated Today Z13.9 - Encounter for screening, unspecified Medications: New oxybutynin chloride ER 5 mg PO DAILY 30 days 30 tabs 1RF N32.81 - Overactive bladder, R39.15 - Urgency of urination oxybutynin chloride ER 5 mg PO DAILY 30 days 30 tabs 1RF N32.81 - Overactive bladder, R39.15 - Urgency of urination Patient Instructions: Imaging studies, laboratory and physical exam results were discussed and reviewed in detail. No major barriers to patient understanding were identified. An opportunity to ask questions regarding the treatment plan was provided. All questions were answered. The patient expressed understanding and agreement with the above treatment plan. The patient is aware they should contact our office by phone for worsening of their current condition or the appearance of new urologic symptoms. Compliance is encouraged with any medications and followup testing that is ordered. It is a privilege to participate in the urologic care of your patient. If you have any questions or concerns regarding treatment for the above conditions, or other urologic issues, please do not hesitate to contact me. The office telephone contact is [phone]. This note is constructed using voice recognition software. While every effort has been made to ensure accuracy quality assurance nurse errors may have been included. Yours sincerely, Dr Neo Douglas MD, [facility] - Urology Providers of Expert, Compassionate Care for the Genitourinary System Coding Level of Care Code Est Pt Level 4 (13444) Diagnoses Urinary urgency R39.15 Urinary bladder cancer C67.9 CPT Codes Cystoscopy - CPT: 06239-[id number] ([id number])
== END 2024-05-04 09:53 | disposition home or self-care (01) ==
PROVIDERS: PCP Internal Medicine; Visit Provider Urology
DX: R39.15 Urgency of urination (principal); C67.9 Malignant neoplasm of bladder, unspecified
CPT/HCPCS: 52000; 99214

== ENCOUNTER → 2024-05-04 08:48 | Outpatient (BNVA) | payer OTHER, SELFPAY | PROVIDERS: PCP Internal Medicine; Visit Provider Urology | DX: C67.9 Malignant neoplasm of bladder, unspecified (principal); R39.15 Urgency of urination | CPT/HCPCS: 52000; 81003; 99212 ==

== ENCOUNTER 2024-07-31 08:50 | Outpatient (AMB) | payer OTHER, SELFPAY ==
--- NOTE | 2024-07-31 09:03 | A.OFFVIS_ITS ---
Intake Visit Reasons: cysto(Bladder Ca) Intake Note: Patient is present for Cystoscopy Urology Medication:NONE Antibiotic Allergy:NONE Blood Thinner:ASPIRIN Lot:[id number] Exp:06/25/27 Shoe Repair Supervisor Required: No Allergies No Known Allergies [No Known Allergies*] Allergy (Verified 07/31/24 09:05) HPI Comments Details: Liban is a very pleasant male. He is a patient of Dr. Torres. He is seen for the following urologic conditions - recurrent low-grade superficial bladder cancer Three-month follow-up check cystoscopy Has been on oxybutynin for urinary urge Urge resolved Cystoscopy normal Six-month follow-up cystoscopy Bladder cancer low-grade - will require lifetime surveillance - recurrent Bladder cancer recurrent low-grade Ongoing for number of years TURBT 06/07 Low grade, 05/11 low-grade noninvasive, 02/12 low-grade noninvasive multiple locations Prior adjuvant therapy - BCG induction, 03/14 [facility] with cytarabine induction Long history of heavy smoking Exposure to chemicals in the workplace such as plastics Agent orange exposure during 18 month deployment to [employer] Cystoscopy - 05/12 NAD - has open ureter right side, 10/13 NAD, 11/11 NAD Cytology - 11/11 NAD PFSH Medical History Elevated cholesterol Pulmonary nodule Urinary bladder cancer COPD (chronic obstructive pulmonary disease) History of peptic ulcer disease Surgical History Hx of cystoscopy H/O colonoscopy History of surgery Social History Alcohol intake: current Alcohol intake frequency: holidays/special occasions only Patient Tobacco Use Status: Current everyday Tobacco user Tobacco use type: Cigarette Cigarette Packs Per Day: 0.5 Cigarettes Per Day: 10.0 Years Smoked: 59 Review of Systems Const Denies chills and Denies fever(s) Card Reports no additional complaints and Denies syncope Resp Denies cough GI Denies abdominal pain and Denies heartburn Reports as per HPI and Denies change in libido Neuro Denies syncope Psych Denies change in libido Endo Denies change in libido Physical Exam Const General: cooperative, healthy appearing, comfortable and no acute distress Orientation/consciousness: patient oriented x3 HEENT Face and sinus: Yes normal facial exam Mouth: moist mucous membranes Neck Neck: Yes normal visual inspection, Yes full ROM and Yes trachea midline Chest Chest palpation & inspection: normal inspection of the chest Resp Effort & Inspection: normal respiratory effort, able to speak in complete sentences and no respiratory distress GI Inspection: Yes normal to inspection Back/Spine/Pelvis Cervical Spine: normal cervical lordosis Thoracic/Lumbar Spine: thoracic and lumbar spine normal to inspection Skin General skin exam: no rashes or lesions noted Neuro General: patient oriented x3, gait normal, tone normal and moves all extremities Extrem General: Yes normal to inspection and Yes capillary refill normal Office Procedures Cystoscopy Consent Discussed risk and benefit or proposed procedure with the patient. Information consent for procedure given to the patient. Discussed technical aspects, risks, benefits and alternatives in full. Addressed all of the patient's questions and concerns regarding the procedure. The patient demonstrated knowledge and understanding. They wish to proceed with this procedure. Preparation The patient was prepped in the usual manner. A transportation aide was present and in the room. Genitalia was prepped with betadine solution in a sterile manner. Lidocaine Jelly 2% was placed into the urethra and 16Fr flexible Olympus cystoscope was inserted into the meatus after adequate lubrication. Procedure Cystoscopy performed using a disposable Urovue digital 16 Welsh cystoscope. Meatus circumcised Urethra anterior and posterior urethra normal Prostatic Urethra unremarkable Bladder examination with retroflexion of cystoscope Bladder Orifices normal shape Bladder Capacity normal Trabeculations grade 1 Cellule Formation - Diverticulum Formation - Mucosal Erythema - Bladder Tumor - 18562-[id number] DISPOSABLE SCOPE URO-G FLEXIBLE SCOPE Procedure code (CPT) selection complete Office Meds lidocaine HCl 2 % mucosal jelly in applicator Performing Provider: Neo Douglas MD [place] [facility] [facility] Documented (not given) by: Neo Douglas MD on 07/31/24 09:38 Dose Route Admin Location Dispensed Lot Number Expiration Date ND Layout Mechanic 10 mL intra-urethral mL Results AMB Urinalysis, Automated UA Leukoctes 0 Althea/uL Last Edit by ANUPAMA Pollock on 07/31/24 09:16 UA Nitrite Negative Last Edit by ANUPAMA Pollock on 07/31/24 09:16 UA Urobilinogen 0.2 mg/dL Last Edit by ANUPAMA Pollock on 07/31/24 09:1 6 UA Protein 15 mg/dL Last Edit by Heidi [facility] on 07/31/24 09:16 UA pH 6.0 Last Edit by ANUPAMA Pollock on 07/31/24 09:16 UA Blood 0 Geo/uL Last Edit by Heidi Maria [facility] on 07/31/24 09:16 UA Specific [place] 1.025 Last Edit by ANUPAMA Pollock on 07/31/24 09: 16 UA Ketone Negative Last Edit by Heidi Maria [facility] on 07/31/24 09:16 UA Bilirubin 0 mg/dL Last Edit by Heidi Maria [facility] on 07/31/24 09:16 UA Glucose 0 mg/dL Last Edit by Heidi [facility] on 07/31/24 09:16 Results Reviewed Results Reviewed: Laboratory Last Values Urine pH (Auto) 6.0 07/31/24 09:16 Specific [place] (Auto) 1.025 07/31/24 09:16 Urine Protein (Auto) 15 mg/dL 07/31/24 09:16 Glucose (UA)(Auto) 0 mg/dL 07/31/24 09:16 Urine Ketones (Auto) Negative 07/31/24 09:16 Urine Blood (Auto) 0 Geo/uL 07/31/24 09:16 Urine Nitrite (Auto) Negative 07/31/24 09:16 Urine Bilirubin (Auto) 0 mg/dL 07/31/24 09:16 Urine Urobilinogen (Auto) 0.2 mg/dL 07/31/24 09:16 Leukocyte Esterase (Auto) 0 Althea/uL 07/31/24 09:16 Assessment & Plan Assessment & Plan (1) Urinary bladder cancer: Comment: 2016, Recurrence April 2020 Agent [place] Code(s): C67.9 - Malignant neoplasm of bladder, unspecified Category: Medical (2) Urinary urgency: Code(s): R39.15 - Urgency of urination Category: Medical Plan Six-month follow-up check cysto office Orders: Orders AMB Cystoscopy Today C67.9 - Malignant neoplasm of bladder, unspecified AMB Urinalysis Automated Today Z13.9 - Encounter for screening, unspecified Medications: New lidocaine HCl 2% 10 mL intra-urethral ONCE 10 mL 0RF C67.9 - Malignant neoplasm of bladder, unspecified Patient Instructions: Imaging studies, laboratory and physical exam results were discussed and reviewed in detail. No major barriers to patient understanding were identified. An opportunity to ask questions regarding the treatment plan was provided. All questions were answered. The patient expressed understanding and agreement with the above treatment plan. The patient is aware they should contact our office by phone for worsening of their current condition or the appearance of new urologic symptoms. Compliance is encouraged with any medications and followup testing that is ordered. It is a privilege to participate in the urologic care of your patient. If you have any questions or concerns regarding treatment for the above conditions, or other urologic issues, please do not hesitate to contact me. The office telephone contact is [phone]. This note is constructed using voice recognition software. While every effort has been made to ensure accuracy water truck driver errors may have been included. Yours sincerely, Dr Neo Douglas MD, [facility] - Urology Providers of Expert, Compassionate Care for the Genitourinary System Coding Level of Care Code Est Pt Level 3 (36002) Diagnoses Urinary bladder cancer C67.9 Urinary urgency R39.15 CPT Codes Cystoscopy - CPT: 09083-Nkmuytwytg ([id number])
== END 2024-07-31 09:46 | disposition home or self-care (01) ==
PROVIDERS: PCP Internal Medicine; Visit Provider Urology
DX: C67.9 Malignant neoplasm of bladder, unspecified (principal); R39.15 Urgency of urination; Z13.9 Encounter for screening, unspecified
CPT/HCPCS: 52000; 99213

== ENCOUNTER → 2024-07-31 08:50 | Outpatient (BNVA) | payer OTHER, SELFPAY | PROVIDERS: PCP Internal Medicine; Visit Provider Urology | DX: C67.9 Malignant neoplasm of bladder, unspecified (principal); R39.15 Urgency of urination | CPT/HCPCS: 52000; 81003; 99212 ==

== ENCOUNTER 2025-02-15 12:32 | Outpatient (AMB) | payer OTHER, SELFPAY ==
--- OUTSIDE RECORDS SUMMARY | 2025-02-10 23:59 | XMS_ITS | Continuity of Care Document ---
Author Organization [facility] Address [address] [address]- Care Team Providers Care Barrel Ribs Solderer Name Role Phone Collette MAGDALENO, Trevor Cornejo Primary Care Physician En[place] [facility] [place](s): 01/11/25 - 02/10/25 [facility] [address] [address]- Attending Physician: Tammy Cardozo Admitting Physician: Tammy Cardozo Referring Physician: Admtr ArErnesto Encounter Type: Triage Allergies, Adverse Reactions, Alerts No Known Medication Allergies Medications acetaminophen 325 mg oral tablet 650 mg, By Mouth, Every 4 hours, Refills 0, Maintenance, 04/15/23 10:20:00 AM EDT, Partial fill uponpatient request if the prescription is for a schedule II opioid drug. Start Date: 04/15/23 Status: Ordered Repeat number: 1 aspirin 81 mg oral delayed release tablet 81 mg, 1, tablet, By Mouth, Daily, # 90 tablet, Refills 0, Tot. Refills 0, Maintenance, 01/11/25 9:14:00 AM EDT, Route to Pharmacy Electronically, [facility], Partial fill upon patient request if the prescription is for a schedule II opioid drug., 181, cm, 01/11/25 9:08:00 EDT, Height, 59.9, kg, 04/14/23 7:19:00 EDT, Dry Weight Start Date: 01/11/25 Status: Ordered Quantity: 90.0 Unit: tablet Repeat number: 1 aspirin 81 mg oral delayed release tablet 81 mg, 1, tablet, By Mouth, Daily, # 90 tablet, Refills 3, Tot. Refills 3, Maintenance, 11/22/22 9:43:00 AM EDT, Route to Pharmacy Electronically, [facility], Partial fill upon patient request if the prescription is for a schedule II opioid drug., 181, cm, 11/22/22 8:47:00 EDT, Height Start Date: 11/22/22 Stop Date: 11/17/23 Status: Ordered Quantity: 90.0 Unit: tablet Repeat number: 4 cilostazol 100 mg oral tablet 1 tablet = 100 mg, By Mouth, Daily, # 90 tablet, 1 Refills, Maintenance, 01/28/23 10:07:00 AM EDT, Tablet, [facility], Partial fill upon patient request if the prescription is for a schedule II opioid drug., 181, cm, 01/28/23 9:45:00 EDT, Height Start Date: 01/28/23 Stop Date: 07/27/23 Status: Ordered Quantity: 90.0 Unit: tablet Repeat number: 2 docusate sodium 100 mg oral capsule 100 mg, 1, capsule, By Mouth, 2 times a day, PRN, # 20 capsule, Refills 0, Tot. Refills 0, Maintenance, for constipation, 04/15/23 10:20:00 AM EDT, Route to Pharmacy Electronically, [facility], Partial fill upon patient request if the prescription is for a schedule II opioid drug., 181, cm, 04/15/23 7:27:00 EDT, Height, 59.9, kg, 04/14/23 7:19:00 EDT, Dry Weight Start Date: 04/15/23 Status: Ordered Quantity: 20.0 Unit: capsule Repeat number: 1 Multivitamin Daily, 0 Refills, Maintenance, 11/22/22 8:48:00 AM EDT, Partial fill upon patient request if the prescription is for a schedule II opioid drug. Start Date: 11/22/22 Status: Ordered Repeat number: 1 pravastatin 40 mg oral tablet 1 tablet = 40 mg, By Mouth, Daily at bedtime, # 30 tablet, 0 Refills, Maintenance, 11/22/22 8:48:00 AM EDT, Tablet, Partial fill upon patient request if the prescription is for a schedule II opioid drug. Start Date: 11/22/22 Status: Ordered Quantity: 30.0 Unit: tablet Repeat number: 1 Problem List Condition Confirmation Course Effective Dates Status Health [facility] Informant Underweight Confirmed Active Patient Care team information Care Team Personnel Name: Trevor Mrudock MD Position: Reference Physician Member Role: PCP Address: [address] [place] [address], [place] [address] Telecom: Name: Rosemary ESCALANTE, Daniel López Position: S RN Member Role: Primary Care Nurse Care Team Related Persons Name: ELIELPENNY Insurance Providers Guarantor name: DIMAS JULIAN [facility] Plan Information #: 1 Payer: [facility] Payer Identifier: NA Member Number: [id number] Group Number: NA Subscriber Identifier: [id number] Relationship to Subscriber: self Coverage Type: NA Coverage Verification Date: NA Telecom: Address:
--- NOTE | 2025-02-15 13:04 | MHC.OFFVIS ---
Intake Visit Reasons: cysto Intake Note: Patient is present for Cystoscopy Urology Medication:NONE Antibiotic Allergy:NONE Blood Thinner:ASPIRIN TODAY'S PVR:0ML'S Lot:[id number] Exp:08/26/27 Engineering Professionals Required: No Allergies No Known Allergies (No Known Allergies*) Allergy (Verified 02/15/25 13:07) HPI Comments Details: Liban is a very pleasant male. He is a patient of Dr. Torres. He is seen for the following urologic conditions - recurrent low-grade superficial bladder cancer Six-month follow-up cystoscopy Has been on oxybutynin for urinary urge Unable to provide urine for cytology Continue six-month follow-up till late 2025 Bladder cancer low-grade - will require lifetime surveillance - recurrent Bladder cancer recurrent low-grade Ongoing for number of years TURBT 06/07 Low grade, 05/11 low-grade noninvasive, 02/12 low-grade noninvasive multiple locations Prior adjuvant therapy - BCG induction, 03/14 [facility] with cytarabine induction Long history of heavy smoking Exposure to chemicals in the workplace such as plastics Agent orange exposure during 18 month deployment to [employer] Cystoscopy - 05/12 NAD - has open ureter right side, 10/13 NAD, 11/11 NAD Cytology - 11/11 NAD PFSH Medical History Elevated cholesterol Pulmonary nodule Urinary bladder cancer COPD (chronic obstructive pulmonary disease) History of peptic ulcer disease Surgical History Hx of cystoscopy H/O colonoscopy History of surgery Social History Alcohol intake: current Alcohol intake frequency: holidays/special occasions only Patient Tobacco Use Status: Current everyday Tobacco user Tobacco use type: Cigarette Cigarette Packs Per Day: 0.5 Cigarettes Per Day: 10.0 Years Smoked: 59 Review of Systems Const Denies chills and Denies fever(s) Card Reports no additional complaints and Denies syncope Resp Denies cough GI Denies abdominal pain and Denies heartburn Reports as per HPI and Denies change in libido Neuro Denies syncope Psych Denies change in libido Endo Denies change in libido Physical Exam Const General: cooperative, healthy appearing, comfortable and no acute distress Orientation/consciousness: patient oriented x3 HEENT Face and sinus: Yes normal facial exam Mouth: moist mucous membranes Neck Neck: Yes normal visual inspection, Yes full ROM and Yes trachea midline Chest Chest palpation & inspection: normal inspection of the chest Resp Effort & Inspection: normal respiratory effort, able to speak in complete sentences and no respiratory distress GI Inspection: Yes normal to inspection Back/Spine/Pelvis Cervical Spine: normal cervical lordosis Thoracic/Lumbar Spine: thoracic and lumbar spine normal to inspection Skin General skin exam: no rashes or lesions noted Neuro General: patient oriented x3, gait normal, tone normal and moves all extremities Extrem General: Yes normal to inspection and Yes capillary refill normal Office Procedures Cystoscopy Consent Discussed risk and benefit or proposed procedure with the patient. Information consent for procedure given to the patient. Discussed technical aspects, risks, benefits and alternatives in full. Addressed all of the patient's questions and concerns regarding the procedure. The patient demonstrated knowledge and understanding. They wish to proceed with this procedure. Preparation The patient was prepped in the usual manner. A blow machine tender starch spraying was present and in the room. Genitalia was prepped with betadine solution in a sterile manner. Lidocaine Jelly 2% was placed into the urethra and 16Fr flexible Olympus cystoscope was inserted into the meatus after adequate lubrication. Procedure Cystoscopy performed using a disposable Urovue digital 16 Macedonian cystoscope. Meatus circumcised Urethra anterior and posterior urethra normal Prostatic Urethra unremarkable Bladder examination with retroflexion of cystoscope Bladder Orifices normal shape and position Bladder Capacity Normal Trabeculations Grade 0 Cellule Formation None Diverticulum Formation None Mucosal Erythema None Bladder Tumor None 32205-[id number] DISPOSABLE SCOPE URO-G FLEXIBLE SCOPE Procedure code (CPT) selection complete Post Void Residual Post Residual Void Post Void Residual (PVR): 0 95641-Cqyt Void Residual by ultrasound Office Meds lidocaine HCl 2 % mucosal jelly in applicator Performing Provider: Neo Douglas MD [place] [facility] [place] [facility] Administered by: Anaya Erwin RN on 02/15/25 13:22 Dose Route Admin Location Dispensed Lot Number Expiration Date [facility] [place] [employer] 10 mL intra-urethral 10 mL nitrofurantoin monohydrate/macrocrystals 100 mg capsule Performing Provider: Neo Douglas MD Performing [place] [facility] [place] [facility] Administered by: Anaya Erwin RN on 02/15/25 13:22 Dose Route Admin Location Dispensed Lot Number Expiration Date [employer] 100 mg PO 1 cap Assessment & Plan Assessment & Plan (1) Urinary bladder cancer: Comment: 2016, Recurrence April 2020 Agent [place] Code(s): C67.9 - Malignant neoplasm of bladder, unspecified Category: Medical Plan Six-month follow-up check cystoscopy Orders: Orders AMB Cystoscopy Today R39.15 - Urgency of urination Patient Instructions: This note is constructed using voice recognition software. While every effort has been made to ensure accuracy roofer assistant errors may have been included. Imaging studies, laboratory and physical exam results were discussed and reviewed in detail. No major barriers to patient understanding were identified. An opportunity to ask questions regarding the treatment plan was provided. All questions were answered. The patient expressed understanding and agreement with the above treatment plan. The patient is aware they should contact our office by phone for worsening of their current condition or the appearance of new urologic symptoms. Compliance is encouraged with any medications and followup testing that is ordered. It is a privilege to participate in the urologic care of your patient. If you have any questions or concerns regarding treatment for the above conditions, or other urologic issues, please do not hesitate to contact me. The office telephone contact is [phone]. Sincerely, Dr Neo Douglas MD, [facility] - Urology Compassionate Specialist Care for the Genitourinary System Coding Level of Care Code Est Pt Level 3 (20935) Complex EM visit Add On G2211 Diagnoses Urinary bladder cancer C67.9 CPT Codes Cystoscopy - CPT: 89034-Ebrxfvzowi ([id number]) Post Residual Void - PVR CPT Code: 52991-Vuvp Void Residual by ultrasound ([id number])
== END 2025-02-15 13:44 | disposition home or self-care (01) ==
LOC: HO.HUSH 12:33
PROVIDERS: PCP Internal Medicine; Visit Provider Urology
DX: C67.9 Malignant neoplasm of bladder, unspecified (principal); R39.15 Urgency of urination
CPT/HCPCS: 52000; 99213

== ENCOUNTER → 2025-02-15 12:32 | Outpatient (BNVA) | payer OTHER, SELFPAY | PROVIDERS: PCP Internal Medicine; Visit Provider Urology | DX: C67.9 Malignant neoplasm of bladder, unspecified (principal); R39.15 Urgency of urination; F17.200 Nicotine dependence, unspecified, uncomplicated | CPT/HCPCS: 51798; 52000; 99212 ==